=== PATIENT | female | born 1965 | race Caucasian/White ===

== ENCOUNTER 2018-10-25 01:50 | Emergency (ER) | payer OTHER ==
[2018-10-25] MEDS ORDERED: Albuterol/Ipratropium 3.0-0.5 MG/3 ML Neb Soln ONE (01:53)
[2018-10-25] MEDS ORDERED: Albuterol/Ipratropium 3.0-0.5 MG/3 ML Neb Soln NEB ONE (01:53)
--- NOTE | 2018-10-25 01:59 | EDM.PDOC ---
ED HPI GENERAL MEDICAL PROBLEM - General Chief Complaint: Respiratory Problem Stated Complaint: [facility] Time Seen by Provider: 10/25/18 01:51 Source of Information: Reports: EMS History Limitations: Reports: Respiratory Distress - History of Present Illness INITIAL COMMENTS - FREE TEXT/NARRATIVE: This is a 53-year-old female. The ambulance was called to her home and she sitting on the front step very lethargic with head back and she is gasping for breath and slightly obtunded. Was they got her on some oxygen and began to assist her breathing with an Ambu bag her pulse ox was only 71%. They did give her a breathing treatment the ambulance and she became more responsive. By the time she arrived to the ER she was moaning and groaning but still extremely short of breath and not moving much air. At home the ambulance crew indicated she wasn't moving any air and after the breathing treatment she began to move some air. In the ER she does have some respiratory movement but she is obviously still struggling to get her breath. There is no stridor noted with her respirations. The patient indicates she has no history of COPD but she does smoke. Once the patient was able to say more than one word at a time she did indicate that when she had to sit down on the steps she was having what she described as burning chest pain in the center of her chest that did not seem to go to her jaw or down her left arm. That has all resolved and she has no chest pain now and has had no chest pain since we stabilized her. Additionally she states she' s had 3 days of congestion and cough and some shortness of breath. - Related Data Allergies Allergy/AdvReac Type Severity Reaction Status Date / Time No Known Allergies Allergy Verified 10/25/18 02:19 Home Meds: Home Meds . [Unable to Verify Home Med List] 10/25/18 [History] ED ROS GENERAL - Review of Systems Review Of Systems: Unable To Obtain ED EXAM, GENERAL - Physical Exam Exam: See Below Exam Limited By: Respiratory Distress General Appearance: Lethargic, Severe Distress Eye Exam: Bilateral Eye: Normal Inspection, Other (Pupils are reactive) Ears: Normal External Exam Nose: Normal Inspection Throat/Mouth: Other (Dry mucous membranes, the patient is gasping for breath and is not able to say but one word answers to any questions, BiPAP was placed immediately on the patient's arrival to the ER) Head: Normocephalic Neck: Supple Respiratory/Chest: Other (She has some movement with inspiration and expiration but very tight and wheezing, I cannot hear any crackles or rales but I don't hear much breath sounds to begin with, she is obviously in respiratory distress) Cardiovascular: Regular Rate, Rhythm, Tachycardia, Other (On the monitor she does not appear to be an SVT or just a rapid tachycardia due to her respiratory distress) GI/Abdominal: Soft Extremities: Normal Inspection, No Pedal Edema Neurological: Confused, Other (She is awake and she does seem to answer some questions appropriately but they are one-word answers) Psychiatric: Anxious Skin Exam: Diaphoretic EKG INTERPRETATION EKG Interpretation Comments: First EKG shows a sinus tachycardia rate of 144 with a wandering baseline. She appears to have an anterior ventricular conduction delay but I can't tell about acute ST changes. Second EKG shows a sinus tachycardia rate of 120 and she definitely has a left bundle branch block. Course - Vital Signs Last Recorded V/S: Last Vital Signs Temp 97.5 F 10/25/18 01:54 Pulse 102 H 10/25/18 05:20 Resp 20 10/25/18 05:20 BP 130/82 10/25/18 05:20 Pulse Ox 98 10/25/18 05:20 - Orders/Labs/Meds Orders: Active Orders 24 hr Category Date Time Status BIPAP [RT BiPAP/CPAP] [RC] ASDIRECTED Care 10/25/18 01:53 Active EKG 12 Lead [EKG Documentation Completion] [RC] STAT Care 10/25/18 01:54 Active EKG 12 Lead [EKG Documentation Completion] [RC] STAT Care 10/25/18 03:41 Active RT Aerosol Therapy [RC] ASDIRECTED Care 10/25/18 01:54 Active CXR [Chest 1V Frontal] [CR] Stat Exams 10/25/18 01:51 Taken CULTURE BLOOD [BC] Stat Lab 10/25/18 02:09 Received CULTURE BLOOD [BC] Stat Lab 10/25/18 02:15 Received Blood Culture x2 Reflex Set [OM.PC] Stat Oth 10/25/18 01:53 Ordered Labs: Laboratory Tests 10/25/18 10/25/18 10/25/18 Range/Units 01:54 01:54 01:54 WBC 22.70 H (3.98-10.04) K/mm3 RBC 4.83 (3.98-5.22) M/mm3 Hgb 14.0 (11.2-15.7) gm/L Hct 44.3 (34.1-44.9) % MCV 91.7 (79.4-94.8) fl MCH 29.0 (25.6-32.2) pg MCHC 31.6 L (32.2-35.5) g/dl RDW Std Deviation 48.6 H (36.4-46.3) fL Plt Count 785 H (182-369) K/mm3 MPV 8.8 L (9.4-12.3) fl Neut % (Auto) 47.8 (34.0-71.1) % Lymph % (Auto) 40.0 (19.3-51.7) % Dawson % (Auto) 7.1 (4.7-12.5) % Eos % (Auto) 2.6 (0.7-5.8) Baso % (Auto) 1.0 (0.1-1.2) % Neut # (Auto) 10.86 H (1.56-6.13) K/mm3 Lymph # (Auto) 9.08 H (1.18-3.74) K/mm3 Dawson # (Auto) 1.62 H (0.24-0.36) K/mm3 Eos # (Auto) 0.58 H (0.04-0.36) K/mm3 Baso # (Auto) 0.22 H (0.01-0.08) K/mm3 Manual Slide Review Abnormal smear Puncture Site ABG pH (7.35-7.45) ABG pCO2 (35.0-45.0) mmHg ABG pO2 (80.0-100.0) mmHg ABG HCO3 (22.0-26.0) meq/L ABG O2 Saturation (96.0-97.0) % ABG Base Excess (-2-2.0) Vinny Test A-a Gradient mmHg O2 Delivery Device FiO2 (21.00-100.00) % Blood Gas Comments Sodium 136 (136-145) mEq/L Potassium 3.1 L (3.5-5.1) mEq/L Chloride 101 (98-107) mEq/L Carbon Dioxide 18 L (21-32) mEq/L Anion Gap 20.1 H (5-15) BUN 15 (7-18) mg/dL Creatinine 1.3 H (0.55-1.02) mg/dL Est Cr Clr Drug Dosing TNP Estimated GFR (MDRD) 43 (>60) mL/min BUN/Creatinine Ratio 11.5 L (14-18) Glucose 354 H (74-106) mg/dL Lactic Acid (0.4-2.0) mmol/L Calcium 8.6 (8.5-10.1) mg/dL Total Bilirubin 0.3 (0.2-1.0) mg/dL AST 23 (15-37) U/L ALT 32 (14-59) U/L Alkaline Phosphatase 63 (46-116) U/L Troponin I 0.023 (0.00-0.056) ng/mL C-Reactive Protein 0.4 (<1.0) mg/dL NT-Pro-B Natriuret Pep 906 H (0-125) pg/mL Total Protein 7.2 (6.4-8.2) g/dl Albumin 3.4 (3.4-5.0) g/dl Globulin 3.8 gm/dL Albumin/Globulin Ratio 0.9 L (1-2) 10/25/18 10/25/18 10/25/18 Range/Units 02:09 02:18 03:58 WBC (3.98-10.04) K/mm3 RBC (3.98-5.22) M/mm3 Hgb (11.2-15.7) gm/L Hct (34.1-44.9) % MCV (79.4-94.8) fl MCH (25.6-32.2) pg MCHC (32.2-35.5) g/dl RDW Std Deviation (36.4-46.3) fL Plt Count (182-369) K/mm3 MPV (9.4-12.3) fl Neut % (Auto) (34.0-71.1) % Lymph % (Auto) (19.3-51.7) % Dawson % (Auto) (4.7-12.5) % Eos % (Auto) (0.7-5.8) Baso % (Auto) (0.1-1.2) % Neut # (Auto) (1.56-6.13) K/mm3 Lymph # (Auto) (1.18-3.74) K/mm3 Dawson # (Auto) (0.24-0.36) K/mm3 Eos # (Auto) (0.04-0.36) K/mm3 Baso # (Auto) (0.01-0.08) K/mm3 Manual Slide Review Puncture Site Rt radial Lt radial ABG pH 7.26 L 7.35 (7.35-7.45) ABG pCO2 41.8 39.7 (35.0-45.0) mmHg ABG pO2 67.0 L 88.0 (80.0-100.0) mmHg ABG HCO3 18.3 L 21.3 L (22.0-26.0) meq/L ABG O2 Saturation 92.3 L 97.6 H (96.0-97.0) % ABG Base Excess -7.9 L -3.5 L (-2-2.0) Vinny Test Positive Positive A-a Gradient 201 183 mmHg O2 Delivery Device Bipap Bipap FiO2 50.00 50.00 (21.00-100.00) % Blood Gas Comments Bipap 14/7 Bipap 14/7 Sodium (136-145) mEq/L Potassium (3.5-5.1) mEq/L Chloride (98-107) mEq/L Carbon Dioxide (21-32) mEq/L Anion Gap (5-15) BUN (7-18) mg/dL Creatinine (0.55-1.02) mg/dL Est Cr Clr Drug Dosing Estimated GFR (MDRD) (>60) mL/min BUN/Creatinine Ratio (14-18) Glucose (74-106) mg/dL Lactic Acid 5.1 H (0.4-2.0) mmol/L Calcium (8.5-10.1) mg/dL Total Bilirubin (0.2-1.0) mg/dL AST (15-37) U/L ALT (14-59) U/L Alkaline Phosphatase (46-116) U/L Troponin I (0.00-0.056) ng/mL C-Reactive Protein (<1.0) mg/dL NT-Pro-B Natriuret Pep (0-125) pg/mL Total Protein (6.4-8.2) g/dl Albumin (3.4-5.0) g/dl Globulin gm/dL Albumin/Globulin Ratio (1-2) 10/25/18 10/25/18 10/25/18 Range/Units 04:12 04:12 04:12 WBC 28.02 H (3.98-10.04) K/mm3 RBC 4.59 (3.98-5.22) M/mm3 Hgb 13.3 (11.2-15.7) gm/L Hct 41.0 (34.1-44.9) % MCV 89.3 (79.4-94.8) fl MCH 29.0 (25.6-32.2) pg MCHC 32.4 (32.2-35.5) g/dl RDW Std Deviation 46.9 H (36.4-46.3) fL Plt Count 619 H (182-369) K/mm3 MPV 8.2 L (9.4-12.3) fl Neut % (Auto) 87.5 H (34.0-71.1) % Lymph % (Auto) 5.3 L (19.3-51.7) % Dawson % (Auto) 6.1 (4.7-12.5) % Eos % (Auto) 0.3 L (0.7-5.8) Baso % (Auto) 0.2 (0.1-1.2) % Neut # (Auto) 24.51 H (1.56-6.13) K/mm3 Lymph # (Auto) 1.49 (1.18-3.74) K/mm3 Dawson # (Auto) 1.72 H (0.24-0.36) K/mm3 Eos # (Auto) 0.08 (0.04-0.36) K/mm3 Baso # (Auto) 0.06 (0.01-0.08) K/mm3 Manual Slide Review Abnormal smear Puncture Site ABG pH (7.35-7.45) ABG pCO2 (35.0-45.0) mmHg ABG pO2 (80.0-100.0) mmHg ABG HCO3 (22.0-26.0) meq/L ABG O2 Saturation (96.0-97.0) % ABG Base Excess (-2-2.0) Vinny Test A-a Gradient mmHg O2 Delivery Device FiO2 (21.00-100.00) % Blood Gas Comments Sodium 138 (136-145) mEq/L Potassium 3.6 (3.5-5.1) mEq/L Chloride 104 (98-107) mEq/L Carbon Dioxide 21 (21-32) mEq/L Anion Gap 16.6 H (5-15) BUN 14 (7-18) mg/dL Creatinine 0.9 (0.55-1.02) mg/dL Est Cr Clr Drug Dosing TNP Estimated GFR (MDRD) > 60 (>60) mL/min BUN/Creatinine Ratio 15.6 (14-18) Glucose 117 H (74-106) mg/dL Lactic Acid (0.4-2.0) mmol/L Calcium 8.4 L (8.5-10.1) mg/dL Total Bilirubin (0.2-1.0) mg/dL AST (15-37) U/L ALT (14-59) U/L Alkaline Phosphatase (46-116) U/L Troponin I 0.449 H* (0.00-0.056) ng/mL C-Reactive Protein (<1.0) mg/dL NT-Pro-B Natriuret Pep (0-125) pg/mL Total Protein (6.4-8.2) g/dl Albumin (3.4-5.0) g/dl Globulin gm/dL Albumin/Globulin Ratio (1-2) 10/25/18 Range/Units 06:06 WBC (3.98-10.04) K/mm3 RBC (3.98-5.22) M/mm3 Hgb (11.2-15.7) gm/L Hct (34.1-44.9) % MCV (79.4-94.8) fl MCH (25.6-32.2) pg MCHC (32.2-35.5) g/dl RDW Std Deviation (36.4-46.3) fL Plt Count (182-369) K/mm3 MPV (9.4-12.3) fl Neut % (Auto) (34.0-71.1) % Lymph % (Auto) (19.3-51.7) % Dawson % (Auto) (4.7-12.5) % Eos % (Auto) (0.7-5.8) Baso % (Auto) (0.1-1.2) % Neut # (Auto) (1.56-6.13) K/mm3 Lymph # (Auto) (1.18-3.74) K/mm3 Dawson # (Auto) (0.24-0.36) K/mm3 Eos # (Auto) (0.04-0.36) K/mm3 Baso # (Auto) (0.01-0.08) K/mm3 Manual Slide Review Puncture Site ABG pH (7.35-7.45) ABG pCO2 (35.0-45.0) mmHg ABG pO2 (80.0-100.0) mmHg ABG HCO3 (22.0-26.0) meq/L ABG O2 Saturation (96.0-97.0) % ABG Base Excess (-2-2.0) Vinny Test A-a Gradient mmHg O2 Delivery Device FiO2 (21.00-100.00) % Blood Gas Comments Sodium (136-145) mEq/L Potassium (3.5-5.1) mEq/L Chloride (98-107) mEq/L Carbon Dioxide (21-32) mEq/L Anion Gap (5-15) BUN (7-18) mg/dL Creatinine (0.55-1.02) mg/dL Est Cr Clr Drug Dosing Estimated GFR (MDRD) (>60) mL/min BUN/Creatinine Ratio (14-18) Glucose (74-106) mg/dL Lactic Acid 1.4 (0.4-2.0) mmol/L Calcium (8.5-10.1) mg/dL Total Bilirubin (0.2-1.0) mg/dL AST (15-37) U/L ALT (14-59) U/L Alkaline Phosphatase (46-116) U/L Troponin I (0.00-0.056) ng/mL C-Reactive Protein (<1.0) mg/dL NT-Pro-B Natriuret Pep (0-125) pg/mL Total Protein (6.4-8.2) g/dl Albumin (3.4-5.0) g/dl Globulin gm/dL Albumin/Globulin Ratio (1-2) Meds: Medications Discontinued Medications Generic Name Dose Route Start Last Admin Trade Name Freq PRN Reason Stop Dose Admin Albuterol/Ipratropium 3 ml 10/25/18 01:53 10/25/18 02:07 Duoneb 3.0-0.5 Mg/3 Ml NEB 10/25/18 01:54 3 ml ONETIME ONE Administration Albuterol/Ipratropium Confirm 10/25/18 01:53 10/25/18 02:07 Duoneb 3.0-0.5 Mg/3 Ml Administered 10/25/18 01:54 Not Given Dose 3 ml .ROUTE .STK-MED ONE Budesonide Confirm 10/25/18 02:04 10/25/18 02:07 Pulmicort Administered 10/25/18 02:05 0.5 mg Dose Administration 0.5 mg .ROUTE .STK-MED ONE Ceftriaxone Sodium 2 gm/ 100 mls @ 200 mls/hr 10/25/18 02:20 10/25/18 02:29 Sodium Chloride IV 10/25/18 02:49 200 mls/hr ONETIME ONE Administration Azithromycin 500 mg/ Sodium 250 mls @ 250 mls/hr 10/25/18 02:20 10/25/18 02: 32 Chloride IV 10/25/18 03:19 250 mls/hr ONETIME ONE Administration Sodium Chloride 1,000 mls @ 150 mls/hr 10/25/18 03:45 10/25/18 04:05 Normal Saline IV 150 mls/hr ASDIRECTED CONCETTA Administration - Radiology Interpretation Free Text/Narrative:: [employer]ER suggest fluid in her lungs as well as a infiltrate in the right lower lung more so than the left lower lung - Re-Assessments/Exams Free Text/Narrative Re-Assessment/Exam: 10/25/18 02:07 The patient is still in mild respiratory distress using the BiPAP. When I listened to her lungs now I can hear some inspiratory as well as expiratory breath sounds. She is fighting the BiPAP slightly but her pulse ox is 97%. Her heart rate is going to about 135 and I believe she is slowly improving. We're continuing with DuoNeb and a Pulmicort breathing treatment to try to open up her lungs. The x-rays suggest fluid as well as infiltrate more so on the right lower lung than the left lower lung. 10/25/18 02:20 Patient is breathing much better. She is now working with the BiPAP instead of against it. Her pulse ox is 97%. She is now able to answer questions with 3 and 4 word sentences and appears to be much more relaxed and breathing better. 10/25/18 02:21 I explained to the patient that I believe she has pneumonia and this was causing her shortness of breath and difficulty in breathing. 10/25/18 02:32 Blood gas shows a pH 7.26 with a CO2 of almost 42 and oxygen is 67 on 50%, please note that her carboxyhemoglobin was 8%. 10/25/18 03:06 She is breathing much better. Much slower. I can now hear inspiratory and expiratory breathing but there is expiratory rhonchi noted. Her heart rate is down to 120 and she appears to be resting with the BiPAP. 10/25/18 03:38 Patient is resting much more peacefully. Blood pressure has settled to 116/76 with a pulse ox of 98% and a heart rate of 119. 10/25/18 04:08 The second EKG she has a sinus tachycardia rate of 120 with a definite left bundle branch block. I do not have any old EKGs to know if this is something new or not. 10/25/18 04:15 Repeat blood gas shows a pH of 7.35 CO2 of 40 and O2 of 88. She is now able to answer questions in sentences despite wearing the BiPAP. She denies any history of chest pain other than some burning in her chest prior to coming to the ER. She says she felt like she's been having congestion and a cough for the last several days it just kept getting worse and worse. She has no chest pain presently. 10/25/18 05:11 The second troponin came back at 0.449 which is elevated. So I talked to the patient she is having no pain presently. This could certainly be related to the stress she went through with near respiratory arrest. We will continue to monitor her. Again her EKG shows a left bundle branch block but I do not know if this is new or old. 10/25/18 07:[address] Stringer and because of the elevated troponin and the left bundle branch block that we do not know whether she's had this before he is uncomfortable and putting her in the hospital here and would like her to be transported down to [place] where they can adequately evaluate her cardiac status. 10/25/18 07:14 I went and spoke to the patient and she desires to go to [facility] if she needs to be transferred. 10/25/18 07:[address] Cheatham the hospitalist at [facility]. He is willing to accept the patient but he wants the patient to go to the emergency department and have the clinical outcomes manager aware of her when she arrives. [facility] one call will call me back regarding the transfer of this patient and who will be the accepting physician. 10/25/18 07:[address] Poon, the clinical outcomes manager, as well as Dr. Forman, the ER physician, and Dr. forman agrees to accept the patient in transport to [facility] for further evaluation and treatment in conjunction with Dr. Poon and Dr. Cheatham. Departure - Departure Time of Disposition: 07:59 Disposition: DC/Tfer to [facility] 02 Clinical Impression: Mild congestive heart failure, Elevated troponin, Left bundle branch block, Metabolic acidosis, Elevated lactic acid level Acute respiratory failure Qualifiers: Respiratory failure complication: hypoxia Qualified Code(s): J96.01 - Acute respiratory failure with hypoxia Leukocytosis Qualifiers: Leukocytosis type: other Qualified Code(s): D72.828 - Other elevated white blood cell count Chest pain Qualifiers: Chest pain type: chest pain due to myocardial ischemia Ischemic chest pain type : unspecified angina pectoris type Qualified Code(s): I25.9 - Chronic ischemic heart disease, unspecified - Discharge Information Forms: ED Department Discharge ED Communication - ED Communication Date/Time Date: 10/25/18 Time Called: 07:48 - Discussed Case With (1) Discussed Case With (1): Other (The accepting physician) Person/s Notified (1): Dr. Forman (He agrees to accept the patient in transport to [facility]) - My Orders Last 24 Hours: My Active Orders 10/25/18 01:51 CXR [Chest 1V Frontal] [CR] Stat 10/25/18 01:53 BIPAP [RT BiPAP/CPAP] [RC] ASDIRECTED Blood Culture x2 Reflex Set [OM.PC] Stat 10/25/18 01:54 EKG 12 Lead [EKG Documentation Completion] [RC] STAT RT Aerosol Therapy [RC] ASDIRECTED 10/25/18 02:09 CULTURE BLOOD [BC] Stat 10/25/18 02:15 CULTURE BLOOD [BC] Stat 10/25/18 03:41 EKG 12 Lead [EKG Documentation Completion] [RC] STAT - Assessment/Plan Last 24 Hours: My Active Orders 10/25/18 01:51 CXR [Chest 1V Frontal] [CR] Stat 10/25/18 01:53 BIPAP [RT BiPAP/CPAP] [RC] ASDIRECTED Blood Culture x2 Reflex Set [OM.PC] Stat 10/25/18 01:54 EKG 12 Lead [EKG Documentation Completion] [RC] STAT RT Aerosol Therapy [RC] ASDIRECTED 10/25/18 02:09 CULTURE BLOOD [BC] Stat 10/25/18 02:15 CULTURE BLOOD [BC] Stat 10/25/18 03:41 EKG 12 Lead [EKG Documentation Completion] [RC] STAT
[2018-10-25] MEDS ORDERED: Budesonide 0.5 MG/2 ML Neb Susp ONE (02:04)
[2018-10-25] MEDS ORDERED: Azithromycin 500 MG in Sodium Chloride 0.9% 250 ML IV ONE (02:20)
[2018-10-25] MEDS ORDERED: cefTRIAXone 2 GM in Sodium Chloride 0.9% 100 ML IV ONE (02:20)
[2018-10-25] MEDS ORDERED: Sodium Chloride 0.9% 1,000 ML IV SCH (03:45)
--- NOTE | 2018-10-25 20:17 | CR ---
Chest: Portable view of the chest was obtained. Comparison: No prior chest x-ray. Heart size at the upper limits of normal. Central lung markings are increased suspicious for pulmonary vascular congestion. No alveolar type densities are seen. Bony structures are grossly intact. Impression: 1. Findings suspicious for mild pulmonary vascular congestion. Please correlate if patient has acute cardiac event. Diagnostic code #3 I agree with preliminary report issued by [facility] ([facility] report finalized on 10/25/18, 4:43 AM Central Time)
== END 2018-10-25 08:50 ==
LOC: JD.ED 01:50 → UNDOADMIN 06:44 → JD.ICU 06:44 → JD.ED 08:50
DX: J96.01 Acute respiratory failure with hypoxia (principal); I50.9 Heart failure, unspecified; I44.7 Left bundle-branch block, unspecified; E87.2 Acidosis; D72.828 Other elevated white blood cell count; R79.89 Other specified abnormal findings of blood chemistry
CPT/HCPCS: 36415; 36600; 71045; 80048; 80053; 82803; 83605; 83880; 84484; 85025; 86140; 87040; 93005; 94640; 94660; 96361; 96365; 96367; 99285; J0456; J0696; J7030; J7040; J7050; 93010; J7620-GY